=== PATIENT | male | born 1990 | race African-American/Black ===

== ENCOUNTER 2020-05-31 18:01 | Emergency (ER) | payer MEDICAID ==
[~2020-05-31] VITALS: Ht 175.3 cm; Wt 97.5 kg
[2020-05-31 18:19] VITALS: BP 102/61
[2020-05-31] MEDS ORDERED: AMOX500C2 PO (18:27)
[2020-05-31] MEDS ORDERED: HYDR-4209 PO (18:27)
--- NOTE | 2020-05-31 18:33 | NUR ---
Patient discharged to home in stable condition. Written and verbal after care instructions given. Patient verbalizes understanding of instruction.
== END 2020-05-31 18:33 | disposition home or self-care (01) ==
LOC: ER 18:06
DX: K08.89 Other specified disorders of teeth and supporting structures (principal); K02.9 Dental caries, unspecified; I10 Essential (primary) hypertension; J45.909 Unspecified asthma, uncomplicated